=== PATIENT | male | born 1960 | race Caucasian/White ===

== ENCOUNTER → 2018-05-13 | Day surgery (SDC) | payer BC ==
[2018-05-07 16:29] LABS: BASOPHILS # (AUTO) 0.1 (0.0-0.1); BASOPHILS % 1.2 % (0.0-1.0); EOSINOPHILS # (AUTO) 0.4 (0.0-0.4); EOSINOPHILS % 4.5 % (0.0-6.0); HEMATOCRIT 51.1 % (38.2-49.6); HEMOGLOBIN 16.8 g/dL (14.0-18.0); LYMPHOCYTES # (AUTO) 2.1 (1.0-3.2); LYMPHOCYTES % 24.6 % (18.0-39.1); MEAN CORPUSCULAR HEMOGLOBIN 32.1 pg (28-32); MEAN CORPUSCULAR HGB CONC 32.9 g/dL (31-35); MEAN CORPUSCULAR VOLUME 97.5 fL (81-99); MONOCYTES # (AUTO) 0.8 (0.2-0.8); MONOCYTES % 9.7 % (4.4-11.3); NEUTROPHILS % 59.6 % (38.7-80.0); PLATELET COUNT 184 x10e3/uL (140-360); RED BLOOD COUNT 5.24 x10e6/uL (4.3-5.7); RED CELL DISTRIBUTION WIDTH 12.6 % (11.7-14.4)
--- NOTE | 2018-05-07 16:32 | Diagnostic Imaging Report ---
EXAMINATION: CHEST 2 VIEWS INDICATION: Preop COMPARISON: None FINDINGS: TUBES and LINES: None. LUNGS: Lungs are well inflated. Lungs are clear. There is no evidence of pneumonia or pulmonary edema. PLEURA: No pleural effusion or pneumothorax. HEART AND MEDIASTINUM: The cardiomediastinal silhouette is unremarkable. BONES AND SOFT TISSUES: No acute osseous lesion. Soft tissues are unremarkable. UPPER ABDOMEN: No free air under the diaphragm. IMPRESSION: No acute thoracic abnormality. Signed by: Dr. Vu Garcia M.D. on 05/07/2018 4:27 PM
[2018-05-07 16:39] LABS: INR 0.87; PROTHROMBIN TIME 12.7 seconds (11.9-14.5)
[2018-05-07 16:46] LABS: ANION GAP 15.3 mmol/L (8-16); CREATININE, SERUM 1.26 mg/dL (0.72-1.25); POTASSIUM 4.3 mmol/L (3.5-5.1)
[~2018-05-13] MED LIST: CEFTRIAXONE SOD 1 GM VIAL ONE; DEXAMETHASONE SOD PHOS INJ 4 MG/ML VIAL ONE; FENTANYL CITRATE/PF 100MCG/2 ML INJ ONE; GENTAMICIN 80MG/NS 100 ML 200 ML IV ONE; HYDRALAZINE HCL 20 MG/ML VIAL ONE; LIDOCAINE HCL 2% LOCAL INJ 5 ML SDV VIAL INJ ONE; MIDAZOLAM HCL 2 MG/2 ML VIAL ONE; ONDANSETRON HCL INJ 2 MG/ML VIAL ONE; PROPOFOL IV EMULSION 10 MG/ML 20 ML VIAL ONE; SEVOFLURANE INHAL SOLN 250 ML PEN BTL ONE
--- NOTE | 2018-05-13 13:25 | Operative Report ---
DATE OF PROCEDURE: May 13, 2018 PREOPERATIVE DIAGNOSES 1. Benign prostatic hypertrophy. 2. Rule out carcinoma of the prostate. POSTOPERATIVE DIAGNOSES 1. Benign prostatic hypertrophy. 2. Rule out carcinoma of the prostate. 3. Urethral stricture, urethral meatus. OPERATIONS PERFORMED 1. Prostate ultrasound. 2. Prostate ultrasound-guided needle biopsies. 3. Urethral dilation. 4. Cystourethroscopy. MEDICAL OFFICE TECHNICIAN: Dr. Brett Call. ANESTHETIC: General. Mr. Berman is a 57-year-old male who presented with a chief complaint of lower urinary tract obstructive symptoms. Rectal exam showed an enlarged prostate gland with a hard nodule on the left base. His PSA was elevated. This patient was placed on the table in the lithotomy position, and transrectal ultrasound of the prostate was performed and the prostate measured 4.68 x 3.67 x 4.13 with a total volume of 37.12 mL. There was a hypoechoic area on the left base. Multiple transrectal ultrasound-guided needle biopsies were obtained from the hypoechoic area and from the normal-appearing prostate to map it for any multifocal carcinoma. There were multiple calcifications with post-calcification shadowing. Both seminal vesicles were unremarkable. This patient was then placed on the table in the lithotomy position and was prepped and draped in a sterile manner after satisfactory anesthesia. A #23 [place] cystoscope was used but could not be passed through the urethral meatus because of a very tight stricture in the fossa navicularis. This was dilated with the Lilli sound up to #26 [place]. A #23 [place] cystoscope was used, and cystourethroscopy was performed and confirmed the previous cystoscopic findings. The remainder part of the urethra was normal. The prostatic urethra was about 4 cm long, bilobar and occlusive. Cystoscopy was then performed using both the right-angle and the Foroblique lens, and it was noted that the bladder mucosa was normal with no evidence of gross tumor, pathology, or any papillary lesions. Both ureteral orifices were seen and were within normal position, configuration, efflux. The bladder wall was mildly trabeculated. The bladder was drained, cystoscope removed, and patient taken to the recovery room in satisfactory condition. Plan for this patient is to be placed on Cipro 500 mg 1 twice a day for 1 week. Ultracet tablet 1 every 6 hours p.r.n. and was given 20. He is to return to the office in 1 week when at that time results of the biopsy will be back and we will proceed with whatever indicated procedure. Job#: [id number]
[2018-05-13 15:30] VITALS: BP 135/85
== END | disposition home or self-care (01) ==
LOC: OR 09:39
PROVIDERS: ATTEND Specialist
DX: D07.5 Carcinoma in situ of prostate (principal); N40.1 Benign prostatic hyperplasia with lower urinary tract symptoms; N41.1 Chronic prostatitis; N13.8 Other obstructive and reflux uropathy; N35.8 Other urethral stricture; N32.89 Other specified disorders of bladder; E78.00 Pure hypercholesterolemia, unspecified; F17.210 Nicotine dependence, cigarettes, uncomplicated; Z01.810 Encounter for preprocedural cardiovascular examination; Z01.812 Encounter for preprocedural laboratory examination; Z01.818 Encounter for other preprocedural examination
CPT/HCPCS: 36415; 52281; 55700; 71046; 76872; 76942; 80048; 85025; 85610; 88305; 88342; 93005; J0360; J0696; J1100; J1580; J2001; J2250; J2405